=== PATIENT | male | born 1975 | race Caucasian/White ===

== ENCOUNTER 2020-07-31 16:59 | Emergency (ER) | payer SELFPAY ==
[~2020-07-31] VITALS: Ht 185.4 cm; Wt 100.0 kg
[2020-07-31 17:44] VITALS: BP 131/85
[2020-07-31] MEDS ORDERED: LIDOCAINE 2% 20 ML VIAL. IJ ONE (18:30)
--- NOTE | 2020-07-31 19:26 | PHYS DOC ---
Past History Past Medical History: No Pertinent History (KIRAN GARCIA APRN) Past Surgical History: No Surgical History (KIRAN GARCIA APRN) Alcohol Use: None (KIRAN GACRIA APRN) Adult General Chief Complaint Chief Complaint: INSECT BITE HPI HPI Patient is a 45-year-old male presents emergency department complaining of left earache and sore throat for 3 days also complains that he has a pimple on his left buttocks for the past 3 days, patient states he thinks he might have been bitten by a spider. Patient reports his pain is a 5/10 on a 1-10 pain scale. Patient denies fever chills, patient denies shortness of breath, chest pains, abdominal pains, nausea, vomiting, or diarrhea. Patient states no one else living in his home is having the same symptoms that he. Patient denies cigarette smoking, illicit drug use, or drinking alcohol. Patient denies allergies to medications, patient states he takes Xanax and Lexapro at home. (KIRAN GARCIA APRN) Review of Systems Review of Systems 14 body systems of review of systems have been reviewed. See HPI for pertinent positives and negative responses, otherwise all other systems are negative, nonpertinent or noncontributory. (KIRAN GARCIA APRN) Current Medications Current Medications Xanax and Lexapro Current Medications Medications (Trade) Dose Ordered Sig/María Start Time Stop Time Status Last Admin Dose Admin Lidocaine HCl 20 ml 1X ONCE 07/31/20 18:30 07/31/20 18:31 DC Trimethoprim/ Sulfamethoxazole (Bactrim Ds) 1 tab 1X ONCE 07/31/20 19:30 07/31/20 19:31 (KIRAN GARCIA APRN) Allergies Allergies Allergies Coded Allergies Type Severity Reaction Last Updated Verified No Known Drug Allergies 07/31/20 No (KIRAN GARCIA APRN) Physical Exam Physical Exam Constitutional: Well developed, well nourished, no acute distress, non-toxic appearance. [] HENT: Normocephalic, atraumatic, bilateral external ears normal, oropharynx moist, no oral exudates, nose normal. Oropharynx erythematous, bilateral tonsillary edema without draining with cobblestoning, no postnasal drip, no uvular edema, no peritonsillar abscess appreciated, right auditory canal and TM within normal limits, left auditory canal within normal limits, left tympanic membrane bulging with air bubbles. Eyes: PERRLA, EOMI, conjunctiva normal, no discharge. [] Neck: Normal range of motion, no tenderness, supple, no stridor. [] Cardiovascular:Heart rate regular rhythm, no murmur [] Lungs & Thorax: Bilateral breath sounds clear to auscultation [] Abdomen: Bowel sounds normal, soft, no tenderness, no masses, no pulsatile masses. [] Skin: Warm, dry, no erythema, no rash. Abscess left buttock near gluteal fold, fluctuant 4 cm diameter abscess with central punctum nondraining. Back: No tenderness, no CVA tenderness. [] Extremities: No tenderness, no cyanosis, no clubbing, ROM intact, no edema. [] Neurologic: Alert and oriented X 3, normal motor function, normal sensory function, no focal deficits noted. [] Psychologic: Affect normal, judgement normal, mood normal. [] (KIRAN GARCIA APRN) Current Patient Data Vital Signs Vital Signs Date Time Temp Pulse Resp B/P (MAP) Pulse Ox O2 Delivery O2 Flow Rate FiO2 07/31/20 17:44 99.1 103 20 131/85 (100) 99 Room Air Lab Results Laboratory Tests Test 07/31/20 18:39 Group A Streptococcus Rapid Negative (NEGATIVE) (KIRAN GARCIA APRN) EKG EKG [] (KIRAN GARCIA APRN) Radiology/Procedures Radiology/Procedures [] (KIRAN GARCIA APRN) Heart Score Risk Factors: Risk Factors: DM, Current or recent (<one month) smoker, HTN, HLP, family history of CAD, obesity. Risk Scores: Risk Factors: DM, Current or recent (<one month) smoker, HTN, HLP, family history of CAD, obesity. (KIRAN GARCIA APRN) Course & Med Decision Making Course & Med Decision Making Pertinent Labs and Imaging studies reviewed. (See chart for details) 45-year-old male, vital signs stable, presents emergency department with sore throat, left earache, and complaint spider bite to buttocks left side. Physical exam concerning for strep infection, patient has abscess on left buttocks. ER work-up consisted of rapid strep-A, I&D of gluteal abscess, see I&D note. Rapid strep test negative, discussed findings with patient, will start on Bactrim DS, patient gave verbal understanding of discharge, instructions, antibiotic use, follow-up with primary care, return to ER precautions or concerns, discharged home without incident. (KIRAN GARCIA APRN) Dragon Disclaimer Dragon Disclaimer This electronic medical record was generated, in whole or in part, using a voice recognition dictation system. (KIRAN GARCIA APRN) Departure Departure: Impression: Primary Impression: Abscess of buttock, left Additional Impressions: Acute viral pharyngitis URI, acute Otitis media Disposition: 01 DC HOME SELF CARE/HOMELESS Condition: IMPROVED Referrals: PCP,NO (PCP) Patient Instructions: Abscess Additional Instructions: Take prescriptions as directed, follow-up in the emergency department for worsening symptoms or other concerns, please return immediately if abscess infection of buttocks becomes worse, follow-up with your primary care doctor for reevaluation of your abscess and 3 to 4 days. EMERGENCY DEPARTMENT GENERAL DISCHARGE INSTRUCTIONS Thank you for coming to [facility] (ED) today and trusting us with you care. We trust that you had a positivie experience in our Emergency Department. If you wish to speak to the department management, you may call the director at [phone]. YOUR FOLLOW UP INSTRUCTIONS ARE FOLLOWS: 1. Do you have a private Doctor? If you do not have a private doctor, please ask for a resource list of physicians or clinics that may be able to assist you with follow up care. 2. The Emergency Physician has interpreted your x-rays. The X-Ray specialist will also review them. If there is a change in the findings, you will be notified in 48 hours when at all possible. 3. A lab test or culture has been done, your results will be reviewed and you will be notified if you need a change in treatment. ADDITIONAL INSTRUCTIONS AND INFORMATION: 1. Your care today has been supervised by a physician who is specially trained in emergency care. Many problems require more than one evaluation for a complete diagnosis and treatment. We recommend that you schedule your follow up appointment as recommended to ensure complete treatment of you illness or injury. If you are unable to obtain follow up care and continue to have a problem, or if your condition worsens, we recommend that you return to the ED. 2. We are not able to safely determine your condition over the phone nor are we able to give sound medical advice over the phone. For these safety reasons, if you call for medical advice we will ask you to come to the ED for further evaluation. 3. If you have any questions regarding these discharge instructions please call the ED at [phone]. SAFETY INFORMATION: In the interest of safety, wellness, and injury prevention; we encourage you to wear your sealbelt, if you smoke; quite smoking, and we encourage family to use a protective helmet for bicycling and other sporting events that present an increased risk for head injury. IF YOUR SYMPTOMS WORSEN OR NEW SYMPTOMS DEVELOP, OR YOU HAVE CONCERNS ABOUT YOUR CONDITION; OR IF YOUR CONDITION WORSENS WHILE YOU ARE WAITING FOR YOUR FOLLOW UP APPOINTMENT; EITHER CONTACT YOUR PRIMARY CARE DOCTOR, THE PHYSICIAN WHOSE NAME AND NUMBER YOU WERE GIVEN, OR RETURN TO THE ED IMMEDIATELY. Scripts Ibuprofen (Ibu) 600 Mg Tablet 600 MG PO TID PRN PRN for PAIN, #20 TAB 0 Refills Prov: KIRAN GARCIA APRN 07/31/20 Hydrocodone/Acetaminophen (Hydrocodone-Acetamin 5-325 mg) 1 Each Tablet 1 EACH PO Q6-8HRS PRN for PAIN, #6 TAB 0 Refills Prov: KIRAN GARCIA APRN 07/31/20 Sulfamethoxazole/Trimethoprim (BACTRIM DS TABLET) 1 Each Tablet 1 TAB PO BID for ABSCESS for 7 Days, #14 TAB 0 Refills Prov: KIRAN GARCIA APRN 07/31/20 Incision and Drainage Indication: [INDICATION:] Abscess left buttock Procedure: The patient was positioned appropriately and the skin over the incisi on site was prepped for procedure with Betadine. Local anesthesia was obtained with 2% lidocaine 5 cc]. An incision was then made over the abscess central punctum with 11 blade scalpel and approximately 5 cc of purulent material was expressed, a culture was obtained and sent to lab. Loculations were broken up with curved forceps. The drainage cavity was then irrigated with 240 cc pressurized normal saline. The patients tetanus status up-to-date. The patient tolerated the procedure [TOLERATED:]. Patient tolerated the procedure well Complications: [COMPLICATIONS:] There were no complications. (KIRAN GARCIA APRN) Bevon Disclaimer This chart was dictated in whole or in part using Voice Recognition software in a busy, high-work load, and often noisy Emergency Department environment. It may contain unintended and wholly unrecognized errors or omissions. (JENNA LEVI MD) Attending Signature Attending Signature I have participated in the care of this patient and I have reviewed and agree with all pertinent clinical information above including history, exam, and recommendations. (JENNA LEVI MD) Problem Qualifiers Additional Impressions: Otitis media Otitis media type: suppurative Chronicity: acute Laterality: left Recurrence: non-recurrent Spontaneous tympanic membrane rupture: without spontaneous rupture Qualified Codes: H66.002 - Acute suppurative otitis media without spontaneous rupture of ear drum, left ear KIRAN GARCIA APRN Jul 31, 2020 19:26 JENNA LEVI MD Aug 01, 2020 09:30
[2020-07-31] MEDS ORDERED: IBUPROFEN 600 MG TABLET. PO ONE (19:30)
[2020-07-31] MEDS ORDERED: SMZ/TMP 800/160MG TABLET. PO ONE (19:30)
[2020-07-31] MEDS ORDERED: SULF1TAB24 PO (19:55)
[2020-07-31] MEDS ORDERED: HYDR-2759 PO (19:55)
[2020-07-31] MEDS ORDERED: IBUP-571 PO (19:55)
[2020-07-31] MEDS ORDERED: PROPOFOL 10,000 MCG/ML (20ML) VIAL IV ONE (20:07)
== END 2020-07-31 20:00 | disposition home or self-care (01) ==
LOC: ER 16:59
DX: L02.31 Cutaneous abscess of buttock (principal); J02.8 Acute pharyngitis due to other specified organisms; J06.9 Acute upper respiratory infection, unspecified; H66.002 Acute suppurative otitis media without spontaneous rupture of ear drum, left ear
CPT/HCPCS: 10061; 87070; 87880; 99284